=== PATIENT | male | born 1965 | race Caucasian/White ===

== ENCOUNTER 2019-10-28 15:17 | Emergency (ER) | payer OTHER, SELFPAY ==
[2019-10-28 15:45] VITALS: BP 122/77; PULSE 75; RESP 18; TEMP 36.6; O2SAT 98; BMI 24.4
[2019-10-28 16:10] LABS: Strep Grp A by PCR Rapid Negative
[2019-10-28 16:34] LABS: Influenza A - CEPHEID Flu A NEGATIVE (NEGATIVE); Influenza B - CEPHEID Flu B NEGATIVE (NEGATIVE)
--- NOTE | 2019-10-28 19:39 | ED_ITS ---
HPI - URI/Sore Throat <TRISH Florez - Last Filed: 10/28/19 19:44> General Chief Complaint: Upper Respiratory Symptoms Stated Complaint: check for strep Time Seen by Provider: 10/28/19 16:56 Source: patient and family Mode of arrival: Ambulatory Limitations: no limitations History of Present Illness HPI Narrative: The patient is a 54-year-old male nonsmoker who denies pertinent medical history presents with a chief complaint of a sore throat concern for strep throat. He states he has had a sore throat for the past few days. States he is congested. Denies any ear pain, fevers, nausea vomiting or diarrhea. States that he has been around cases of strep. Is concerned because he has grandchildren at his house. Denies any chest pain. Denies any shortness of breath. Review of Systems [facility] - Last Filed: 10/28/19 19:44> Review of Systems Narrative: GENERAL: Denies chills, fatigue, malaise, fever, sweats. HEENT: See HPI RESPIRATORY: Denies dyspnea, cough, wheezing, hemoptysis, sputum. CARDIOVASCULAR: Denies chest pain, palpitations, orthopnea, edema, GASTROINTESTINAL: Denies nausea, vomiting, abdominal pain, diarrhea, constipation, melena. : Denies dysuria, frequency, incontinence, hematuria, urinary retention. MUSCULOSKELETAL: denies weakness, joint pain, or bony pain SKIN: Denies rash, skin lesions, or other NEUROLOGIC: Denies weakness, headache, numbness, change in speech, confusion, seizures, incoordination. PSYCHIATRIC: No concerning psychosocial issues. 12 point review of systems is negative except for those stated above Exam <[facility] - Last Filed: 10/28/19 19:44> Narrative Exam Narrative: GENERAL: This is a well-nourished, well-developed patient, acute distress HEAD: Atraumatic. Normocephalic. No temporal or scalp tenderness. EYES: Pupils equal round and reactive. Extraocular motions intact. No scleral icterus. No injection or drainage. ENT: Nose without bleeding, purulent drainage or septal hematoma. Throat without erythema, tonsillar hypertrophy or exudate. Uvula midline. Airway patent. NECK: Trachea midline. No JVD or lymphadenopathy. Supple, nontender, no meningeal signs. CARDIOVASCULAR: Regular rate and rhythm without murmurs, gallops, or rubs. RESPIRATORY: Clear to auscultation. Breath sounds equal bilaterally. No wheezes, rales, or rhonchi. No cough. No increased respiratory effort. No accessory muscle use. GASTROINTESTINAL: Abdomen soft, non-tender, nondistended. No hepato- splenomegaly, or palpable masses. No guarding. EXTREMITIES: No clubbing, cyanosis, or edema. No joint tenderness, effusion, or edema noted. BACK: Nontender without deformity or crepitance. No flank tenderness. NEURO: AOx3. SKIN: No rash or erythema visible skin Initial Vital Signs Initial Vital Signs: Vital Signs Temperature 97.8 F 10/28/19 15:45 Pulse Rate 75 10/28/19 15:45 Respiratory Rate 18 10/28/19 15:45 Blood Pressure 122/77 10/28/19 15:45 Pulse Oximetry 98 10/28/19 15:45 <Anayeli Meyers MD - Last Filed: 10/29/19 07:22> Initial Vital Signs Initial Vital Signs: Vital Signs Temperature 97.8 F 10/28/19 15:45 Pulse Rate 75 10/28/19 15:45 Respiratory Rate 18 10/28/19 15:45 Blood Pressure 122/77 10/28/19 15:45 Pulse Oximetry 98 10/28/19 15:45 Course <ALISSA Florez - Last Filed: 10/28/19 19:44> Orders Ordered: ED Orders 10/28/19 15:57 Influenza A & B (PCR) Stat Strep Grp A by PCR Rapid Stat Vital Signs Vital signs: Vital Signs - 8 hr 10/28/19 15:45 Temperature 97.8 F Pulse Rate 75 Respiratory Rate 18 Blood Pressure 122/77 Pulse Oximetry 98 <Anayeli Meyers MD - Last Filed: 10/29/19 07:22> Orders Ordered: ED Orders 10/28/19 15:57 Influenza A & B (PCR) Stat Strep Grp A by PCR Rapid Stat Vital Signs Vital signs: Vital Signs - 8 hr 10/28/19 15:45 Temperature 97.8 F Pulse Rate 75 Respiratory Rate 18 Blood Pressure 122/77 Pulse Oximetry 98 MDM - URI/Sore Throat <ALISSA Florez - Last Filed: 10/28/19 19:44> Lab Data Labs: Lab Results 10/28/19 10/28/19 Range/Units 15:57 15:57 Influenza A (RT-PCR) Flu a negative (NEGATIVE) Influenza B (RT-PCR) Flu b negative (NEGATIVE) Group A Strep (PCR) Negative MDM Narrative Medical decision making narrative: The patient presents with a chief complaint of concern for strep throat. He is negative for strep. He is negative for flu. He has no signs of systemic infection is hemodynamically stable and nontoxic appearing throughout stay in the emergency department. I discussed at length [id number] measures to use including DayQuil, NyQuil, Sudafed, Flonase sinus rinse etcetera. Encourage PCP follow-up. Discussed come back to ER for any acute concerns such as chest pain shortness of breath etc.. Patient has no questions or concerns upon discharge and states understanding of return precautions as well as follow-up care <Anayeli Meyers MD - Last Filed: 10/29/19 07:22> Lab Data Labs: Lab Results 10/28/19 10/28/19 Range/Units 15:57 15:57 Influenza A (RT-PCR) Flu a negative (NEGATIVE) Influenza B (RT-PCR) Flu b negative (NEGATIVE) Group A Strep (PCR) Negative Discharge Plan Departure Patient Disposition: Home Clinical Impression: Upper respiratory infection Qualifiers: URI type: unspecified viral URI Qualified Code(s): J06.9 - Acute upper respiratory infection, unspecified Discharge Date/Time: 10/28/19 17:45 Instructions: DI for Viral Upper Respiratory Infection -- Adult Activity Restrictions/Additional Instructions: Today you tested negative for the flu and strep Please follow-up with primary care provider if no improvement Please come back to the emergency department for any acute concerns such as chest pain, shortness of breath inability keep down fluids Please use [id number] measures such as Josias med sinus rinse, Flonase and Sudafed Please rest and push fluids Referrals: [facility] [Outside]
== END 2019-10-28 17:45 | disposition home or self-care (01) ==
PROVIDERS: Emergency Provider Nurse Practitioner Family
DX: J06.9 Acute upper respiratory infection, unspecified (principal)
CPT/HCPCS: 87502; 87651; 99282